=== PATIENT | male | born 1955 | race Caucasian/White ===

== ENCOUNTER 2021-09-22 09:15 | Emergency (ER) | payer BC ==
[~2021-09-22] VITALS: Ht 193 cm; Wt 95.3 kg
[2021-09-22 09:50] VITALS: BP 162/87
[2021-09-22] MEDS ORDERED: KETOROLAC 60 MG VIAL (30MG/ML) IM STA (10:23)
[2021-09-22] MEDS ORDERED: NAPR375T6 PO (10:38)
== END 2021-09-22 10:55 | disposition home or self-care (01) ==
LOC: EDH 09:15
DX: S83.91XA Sprain of unspecified site of right knee, initial encounter (principal); X58.XXXA Exposure to other specified factors, initial encounter; Y93.89 Activity, other specified; Y92.89 Other specified places as the place of occurrence of the external cause; Y99.8 Other external cause status
CPT/HCPCS: 99284; 29505; 73562; 96372; J1885

== ENCOUNTER → 2024-05-25 | Outpatient (CLI) | payer BC ==
[~2024-05-25] MED LIST: IOHEXOL 350 MG/ML 100ML INFUS..BTL IV ONE; NAPR-1505 PO; metoPROLOL tartRATE 1 MG/ML 5ML VIAL IV ONE
--- NOTE | 2024-05-25 17:23 | HMCIMG ---
CT CARDIAC ANGIO W/CONT. CCTA HISTORY: Chest pain COMPARISON: None TECHNIQUE: Multiple sequential axial images of the chest were obtained along with the CT angiogram of the chest study. Patient was given 100 cc of Omnipaque through intravenous route. FINDINGS: There is no evidence of pulmonary nodule or parenchymal disease. No pleural effusion or pericardial effusion is seen. There is no evidence of pneumothorax. There are normal size mediastinal and hilar lymph nodes. Coronary arterial calcifications are seen. The heart is not enlarged. Degenerative changes of the thoracolumbar spine are present. IMPRESSION: 1. No evidence of pulmonary nodule or effusion is seen. Please see CT angiogram report of coronary arteries.
--- NOTE | 2024-05-26 21:39 | CARDIOLOGY ---
RAD REPORT: [facility] CT ANGIO RADIOLOGY REPORT: CORONARY CT ANGIOGRAPHY DATE: May 26, 2024 QUALITY: Excellent CLINICAL HISTORY AND INDICATION: [abnormal ECG ] TECHNIQUE: After obtaining a preliminary bronze plater image, contrast imaging performed on an [employer]illon [id number] scanner. A dedicated, limited window, coronary imaging protocol was used, with single breath-hold, retrospective ECG gating, and automated arrhythmia rejection. 100 cc of low osmolar contrast agent: Omnipaque 350 was delivered via a 18-gauge IV catheter in the right antecubital fossa, using a power injector and followed by 60 cc of normal saline bolus as a chaser. Collimated images were reformatted at 0.5 mm intervals, and sent to an offline independent workstation for interpretation, using 3D anatomic reconstructions: Curved multiplanar reconstructions, maximum intensity projections, and multiplanar imaging. 10 mg IV metoprolol was administered prior to scanning. 0.8 mg SL nitroglycerin was given. CORONARY ARTERY DESCRIPTIONS: The coronary arteries arise in normal position. Left main coronary artery: Normal caliber vessel that bifurcates into the LAD and LCx. No stenosis. Left anterior descending coronary artery: Normal caliber vessel and gives rise to diagonal and septal branches. No stenosis. Left circumflex coronary artery: Normal caliber, nondominant and gives rise to a large OM branch. The proximal LCx is subtotally occluded (short segment) with distal artery reference diameter of 3.5 mm. Recommend left heart catheterization. Distal OM is heavily diseased and calcified, however, tapers into a small vessel in this segment. Right coronary artery: Large, dominant vessel giving rise to the PL and PDA branches. There is mixed calcified and noncalcified plaque in the mid RCA with 20-30% stenosis. Thoracic Aorta: Normal diameter. Cheryl Barrios MD Cardi[facility] CHERYL BARRIOS MD May 26, 2024 21:39
== END | disposition home or self-care (01) ==
LOC: RAH 10:55
PROVIDERS: ATTEND Internal Medicine
DX: I25.10 Atherosclerotic heart disease of native coronary artery without angina pectoris (principal); M47.815 Spondylosis without myelopathy or radiculopathy, thoracolumbar region; R07.9 Chest pain, unspecified
CPT/HCPCS: 75574; J3490; Q9967